=== PATIENT | female | born 1975 | race Two or more races ===

== ENCOUNTER 2018-10-29 14:08 | Emergency (ER) | payer OTHER ==
[~2018-10-29] VITALS: Ht 165.1 cm; Wt 77.1 kg
[2018-10-29 14:23] VITALS: BP 132/64
[2018-10-29] MEDS ORDERED: BACITRACIN TOPICAL OINT 14GM TUBE. TP ONE (14:45)
[2018-10-29] MEDS ORDERED: BACI3.5O8 OD (14:49)
[2018-10-29] MEDS ORDERED: VALA500T5 PO (14:49)
[2018-10-29] MEDS ORDERED: PRED20TA PO (14:49)
--- NOTE | 2018-10-29 14:50 | PHYS DOC ---
Past Medical History Past Medical History: No Pertinent History Past Surgical History: Alcohol Use: Rarely Drug Use: None Adult General Chief Complaint Chief Complaint: ABSCESS HPI HPI Patient is a 43 year old [f__sex] who presents with [] Review of Systems Review of Systems Constitutional: Denies fever or chills [] Eyes: Denies change in visual acuity, redness, or eye pain [] HENT: Denies nasal congestion or sore throat [] Respiratory: Denies cough or shortness of breath [] Cardiovascular: No additional information not addressed in HPI [] GI: Denies abdominal pain, nausea, vomiting, bloody stools or diarrhea [] : Denies dysuria or hematuria [] Musculoskeletal: Denies back pain or joint pain [] Integument: Denies rash or skin lesions [] Neurologic: Denies headache, focal weakness or sensory changes [] Endocrine: Denies polyuria or polydipsia [] All other systems were reviewed and found to be within normal limits, except as documented in this note. Allergies Allergies Allergies Coded Allergies Type Severity Reaction Last Updated Verified No Known Drug Allergies 10/29/18 No Physical Exam Physical Exam Constitutional: Well developed, well nourished, no acute distress, non-toxic appearance. [] HENT: Normocephalic, atraumatic, bilateral external ears normal, oropharynx moist, no oral exudates, nose normal. [] Eyes: PERRLA, EOMI, conjunctiva normal, no discharge. [] Neck: Normal range of motion, no tenderness, supple, no stridor. [] Cardiovascular:Heart rate regular rhythm, no murmur [] Lungs & Thorax: Bilateral breath sounds clear to auscultation [] Abdomen: Bowel sounds normal, soft, no tenderness, no masses, no pulsatile masses. [] Skin: Warm, dry, no erythema, no rash. [] Back: No tenderness, no CVA tenderness. [] Extremities: No tenderness, no cyanosis, no clubbing, ROM intact, no edema. [] Neurologic: Alert and oriented X 3, normal motor function, normal sensory function, no focal deficits noted. [] Psychologic: Affect normal, judgement normal, mood normal. [] Current Patient Data Vital Signs Vital Signs Date Time Temp Pulse Resp B/P (MAP) Pulse Ox O2 Delivery O2 Flow Rate FiO2 10/29/18 14:23 98.0 80 18 132/64 (86) 98 Room Air 98.0 EKG EKG [] Radiology/Procedures Radiology/Procedures [] Course & Med Decision Making Course & Med Decision Making Pertinent Labs and Imaging studies reviewed. (See chart for details) [] Dragon Disclaimer Dragon Disclaimer This electronic medical record was generated, in whole or in part, using a voice recognition dictation system. Departure Departure Impression: Primary Impression: Shingles rash Disposition: HOME, SELF-CARE Condition: STABLE Referrals: NO PCP (PCP) Patient Instructions: Shingles Additional Instructions: Your rash appears to be similar to a shingles which is a viral infection- apply thin layer of bacitracin to wound twice a day and monitor skin for worsening symptoms. Follow-up with primary doctor in 2-3 days for re-evaluation of wound sooner with any concerns. Scripts Bacitracin (BACITRACIN) 3.5 Gm Oint...g. 1 GISSELL OD BID, #3.5 GM 0 Refills apply thin layer to rash Prov: LUCIA GRAYSON APRN 10/29/18 Prednisone (PREDNISONE) 20 Mg Tablet 2 TAB PO DAILY, #10 TAB 0 Refills 40 mg daily x5 days Prov: LUCIA GRAYSON APRN 10/29/18 Valacyclovir Hcl (VALTREX) 500 Mg Tablet 500 MG PO TID for 7 Days, #21 TAB 0 Refills Prov: LUCIA GRAYSON APRN 10/29/18 LUCIA GRAYSON APRN Oct 29, 2018 14:50
== END 2018-10-29 15:10 | disposition home or self-care (01) ==
LOC: ER 14:08
DX: B02.8 Zoster with other complications (principal)
CPT/HCPCS: 99283